=== PATIENT | male | born 1985 | race Caucasian/White ===

== ENCOUNTER 2025-02-22 09:44 | Emergency (ER) | payer BC, SELFPAY ==
[2025-02-22] VITALS (10 sets, daily range): BP systolic 154; BP diastolic 110; PULSE 86–127; TEMP 36.7; O2SAT 96–99; BMI 29.5
--- NOTE | 2025-02-22 09:58 | ECG_ITS ---
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 Measurements Intervals [place] Rate: 101 P: 60 PA: 172 QRS: 57 QRSD: 88 T: 50 QT: 328 QTc: 386 Interpretive Statements 1120 Sinus tachycardia 1102 Sinus arrhythmia Otherwise normal ECG No previous ECG available for comparison Electronically Signed On 02-23-2025 19:55:54 EST by VISH BRO M.D.
--- NOTE | 2025-02-22 09:59 | XR_ITS ---
[facility] [place] [id number] Patient Name: LOC PLATT MRN: [id number] date: 1985 Sex: M Assigned Patient Location: ER Current Patient Location: ER Accession/Order Number: [id number] Exam Date: 02/22/2025 10:12 Report Date: 02/22/2025 10:23 At the request of: TRISTA DYSON MD Procedure: XR chest 1V PORTABLE AP ERECT CHEST 0957 hours CLINICAL HISTORY: Chest pain radiating to the jaw COMPARISON: None The heart is within normal limits. There is no vascular congestion. The lungs, as visualized, are clear. There is no effusion or pneumothorax. The osseous structures are intact. There is slight dextroscoliotic curvature. XR/XR chest 1V IMPRESSION: NO ACUTE FINDINGS Impression dictated by: Charlotte Mjeia M.D. 02/22/2025 10:23 AM Dictation Location: [place] [address] Electronically authenticated by: [id number] Y Date: 02/22/2025 10:23
[2025-02-22 10:04] LABS: Hematocrit 45.9 % (42.0-54.0); Hemoglobin 16.1 g/dL (14.0-18.0); Immature Granulocytes Abs Auto 0.01 10^3/uL (0.00-0.03); Immature Granulocytes Pct Auto 0.2 % (0.0-0.5); Lymphocytes Absolute Auto 1.3 10^3/uL (1.2-3.8); Mean Corpuscular HGB Conc 35.1 g/dL (29.9-35.2); Mean Corpuscular Hemoglobin 31.5 pg (25.9-34.0); Mean Corpuscular Volume 89.8 fL (80.0-94.0); Platelet Count 227 10^3/uL (150-450); Red Blood Count 5.11 10^6/uL (4.70-6.10); White Blood Count 4.6 10^3/uL (4.0-11.0)
[2025-02-22 10:25] LABS: Alanine Aminotransferase 35 U/L (16-63); Albumin Globulin Ratio 1.2; Albumin Level 4.3 g/dL (3.4-5.0); Alkaline Phosphatase 78 U/L (46-116); Anion Gap 11.5; Aspartate Amino Transferase 22 U/L (15-37); Blood Urea Nitrogen 9.0 mg/dL (7.0-18.0); Calcium 9.1 mg/dL (8.5-10.1); Carbon Dioxide 27.3 mmol/L (21.0-32.0); Chloride 104 mmol/L (98-107); Estimated GFR (African America >60 (>=60 mL/min/1.73m^2); Estimated GFR (Non-African Ame >60 (>=60 mL/min/1.73m^2); Globulin 3.7 g/dL; Glucose 100 mg/dL (74-106); Potassium 3.8 mmol/L (3.5-5.1); Sodium 139 mmol/L (136-145); Total Protein 8.0 g/dL (6.4-8.2)
[2025-02-22 10:34] LABS: Magnesium 2.1 mg/dL (1.8-2.4)
[2025-02-22 10:36] LABS: INR 1.14; Prothrombin Time 11.9 sec (9.0-11.6)
--- NOTE | 2025-02-22 11:15 | ED.CHESTPAI1 ---
HPI - Chest Pain General Chief Complaint: Chest Pain Stated Complaint: PALPITATIONS Time Seen by Provider: 02/22/25 09:58 Source: patient Mode of arrival: walk-in Limitations: no limitations History of Present Illness HPI narrative: The patient is a 40-year-old male presenting to the ER after he was driving from [place] to [place], apparently in the beginning of the driving the patient felt that he is lightheaded although he mentioned that it was not actually lightheadedness but just feeling of dizziness, although the room was not spinning the patient mentioned that he after that a few minutes later he started having chest pain and feeling that there is numbness around his mouth and head feeling similar to his panic attack history The patient denies any other complaints he also mentioned that he had a history of elevated bilirubin when they do a blood workup with outpatient The patient mentioned that he just came from [place] last Saturday which was almost 6 days ago and the after coming from there the patient apparently had a viral illness mostly coughing and congestion of his sinuses but he is not taking any medication Related Data Home Medications ?Medication ?Instructions ?Recorded ?Confirmed No Known Home Medications 02/22/25 02/22/25 Allergies Allergy/AdvReac Type Severity Reaction Status Date / Time No Known Drug Allergies Allergy Verified 02/22/25 09:49 Review of Systems ROS Status of ROS 10 or more systems reviewed and unremarkable except as noted in history and below PFSH PFSH Social History Little interest or pleasure in doing things: not at all Feeling down, depressed, or hopeless: not at all Exam Narrative Exam Narrative: Nurses notes and vital signs reviewed and patient is not hypoxic. General: Well-appearing and in no apparent distress. Skin: Warm, dry, no pallor noted. No rash. Head: Normocephalic, atraumatic. Neck: Supple, non-tender. Eye: Pupils are equal, round and EOMI. No scleral icterus. Ears, Nose, Mouth, and Throat: Oral mucosa is moist, no posterior oropharynx erythema, uvula is mid-line Cardiovascular: Regular Rate and Rhythm without murmur, gallop or rub. Respiratory: No accessory muscle use or respiratory distress. Lungs are clear to auscultation, no wheezing, rales or rhonchi Chest Wall: no tenderness Back: No midline thoracic or lumbar vertebral tenderness. No CVA tenderness Musculoskeletal: normal ROM, no calf or popliteal tenderness, no lower extremity edema/swelling GI: Abdomen is soft, non-distended. Normal bowel sounds. No masses appreciated. No tenderness to palpation. No rebound, guarding, or rigidity noted. Neurological: A&O x4. No cranial nerve dysfunction observed. No truncal ataxia. Moves all extremities. Sensation intact. Psychiatric: Cooperative and interactive. Normal mood and affect. Constitutional Vital Signs, click to edit/add: Last Vital Signs Temp 98.0 F 02/22/25 09:50 Pulse 106 H 02/22/25 11:10 Resp 21 H 02/22/25 11:10 BP 154/110 H 02/22/25 09:51 Pulse Ox 97 02/22/25 11:10 O2 Del Method Room Air 02/22/25 10:11 Course Vital Signs Vital signs: Vital Signs Temperature 98.0 F 02/22/25 09:50 Pulse Rate 110 H 02/22/25 09:50 Respiratory Rate 23 H 02/22/25 09:50 Blood Pressure 154/110 H 02/22/25 09:50 Pulse Oximetry 99 02/22/25 09:50 Temperature 98.0 F 02/22/25 09:50 Pulse Rate 106 H 02/22/25 11:10 Respiratory Rate 21 H 02/22/25 11:10 Blood Pressure 154/110 H 02/22/25 09:51 Pulse Oximetry 97 02/22/25 11:10 Oxygen Delivery Method Room Air 02/22/25 10:11 MDM - Chest Pain MDM Narrative Medical decision making narrative: The patient EKG showing sinus rhythm with a heart rate of [address] elevation or depression The patient CBC and chemistry showed no acute pathology with a negative troponin Chest x-ray was within normal The patient initial symptoms that caused him to have a panic attack could have been due to sinusitis although the patient does not have any significant symptoms here in the ER. The patient mentioned that he just to continue driving to [place] and he is feeling safe right now with no symptoms Patient was instructed on hydration The patient to follow-up with the primary care within 2 to 3 days and to come back to the ER in case of any worsening of the current symptoms or any new symptoms or concerns Lab Data Labs: Lab Results 02/22/25 Range/Units 09:57 WBC 4.6 (4.0-11.0) 10^3/uL RBC 5.11 (4.70-6.10) 10^6/uL Hgb 16.1 (14.0-18.0) g/dL Hct 45.9 (42.0-54.0) % MCV 89.8 (80.0-94.0) fL MCH 31.5 (25.9-34.0) pg MCHC 35.1 (29.9-35.2) g/dL RDW 11.9 (11.0-15.0) % Plt Count 227 (150-450) 10^3/uL MPV 8.9 L (9.5-13.5) fL Neut % (Auto) 63.4 (43.0-75.0) % Lymph % (Auto) 27.2 (20.5-60.0) % [place] % (Auto) 7.6 (1.7-12.0) % Eos % (Auto) 0.9 (0.9-7.0) % Baso % (Auto) 0.7 (0.2-2.0) % Neut # (Auto) 2.9 (1.4-6.5) 10^3/uL Lymph # (Auto) 1.3 (1.2-3.8) 10^3/uL [place] # (Auto) 0.4 (0.3-0.8) 10^3/uL Eos # (Auto) 0.0 (0.0-0.7) 10^3/uL Baso # (Auto) 0.0 (0.0-0.1) 10^3/uL Abs Immat Gran (auto) 0.01 (0.00-0.03) 10^3/uL Imm/Tot Granulo (auto) 0.2 (0.0-0.5) % PT 11.9 H (9.0-11.6) sec INR 1.14 D-Dimer 0.35 (<=0.59) mg/L FEU Sodium 139 (136-145) mmol/L Potassium 3.8 (3.5-5.1) mmol/L Chloride 104 (98-107) mmol/L Carbon Dioxide 27.3 (21.0-32.0) mmol/L Anion Gap 11.5 BUN 9.0 (7.0-18.0) mg/dL Creatinine 0.96 (0.70-1.30) mg/dL Est GFR ( Amer) >60 (>=60 mL/min/1.73m^2) Est GFR (Non-Af Amer) >60 (>=60 mL/min/1.73m^2) BUN/Creatinine Ratio 9.4 Glucose 100 (74-106) mg/dL Calcium 9.1 (8.5-10.1) mg/dL Magnesium 2.1 (1.8-2.4) mg/dL Total Bilirubin 2.0 H (0.2-1.0) mg/dL AST 22 (15-37) U/L ALT 35 (16-63) U/L Alkaline Phosphatase 78 (46-116) U/L Troponin I High Sens 5.0 (4.0-76.1) pg/mL Total Protein 8.0 (6.4-8.2) g/dL Albumin 4.3 (3.4-5.0) g/dL Globulin 3.7 g/dL Albumin/Globulin Ratio 1.2 Discharge Plan Discharge Chief Complaint: Chest Pain Clinical Impression: Atypical chest pain, Dizziness Patient Disposition: Home, Self-Care Time of Disposition Decision: 11:22 Condition: Good Prescriptions / Home Meds: No Action No Known Home Medications Print Language: Polish Instructions: Dizziness (ED), Noncardiac Chest Pain (ED) Referrals: Physician,Non-Staff, MD [Primary Care Provider] - 1 week
== END 2025-02-22 11:29 | disposition home or self-care (01) ==
PROVIDERS: Emergency Provider Emergency Medicine
DX: R07.89 Other chest pain (principal); R42 Dizziness and giddiness
CPT/HCPCS: 36415; 71045; 80053; 83735; 84484; 85025; 85378; 85610; 93005; 99284; 99285